=== PATIENT | female | born 1960 | race Asian ===

== ENCOUNTER 2021-08-03 05:00 | Day surgery (SDC) | payer MEDICAID ==
[~2021-08-03] VITALS: Ht 152.4 cm; Wt 59.0 kg
[2021-08-03] MEDS ORDERED: fentaNYL CITRATE/PF 100 MCG/2 ML AMP ONE (07:29)
[2021-08-03] MEDS ORDERED: SIMETHICONE 40 MG/0.6 ML ML ONE (07:29)
[2021-08-03] MEDS ORDERED: MIDAZOLAM HCL 5 MG/5 ML VIAL ONE ×2 (07:30)
[2021-08-03 14:23] VITALS: BP_SYST 110
== END 2021-08-03 08:54 | disposition home or self-care (01) ==
LOC: SMU 05:00 → SDS 05:00
PROVIDERS: ATTEND Internal Medicine
DX: K59.00 Constipation, unspecified (principal); D12.5 Benign neoplasm of sigmoid colon; Z80.0 Family history of malignant neoplasm of digestive organs; Z86.010 Personal history of colon polyps; K64.8 Other hemorrhoids; E78.5 Hyperlipidemia, unspecified; Z85.3 Personal history of malignant neoplasm of breast; Z79.899 Other long term (current) drug therapy; Z20.822 Contact with and (suspected) exposure to COVID-19
CPT/HCPCS: 36415 ×2; 45385; 87426; 88305; 99152; G0378; J2250; J3010; U0003